=== PATIENT | male | born 1975 | race Caucasian/White ===

== ENCOUNTER 2025-03-06 11:51 | Day surgery (SDC) | payer OTHER, SELFPAY ==
[2025-03-04 14:52] VITALS: BMI 25.7
--- NOTE | 2025-03-06 | PATH_ITS ---
[facility] Accession Number: [id number] No. of containers..02 Tissue . 01 Material submitted: . PART A: colon - SIGMOID POLYP PART B: hemorrhoids - THROMBOSED EXTERNAL HEMORRHOID . 01 Diagnosis: Part A: SIGMOID POLYP: Tubular adenoma. . Part B: THROMBOSED EXTERNAL HEMORRHOID: Congested squamous mucosa consistent with benign hemorrhoid tissue, with focal thrombosis. No dysplasia identified. [facility] 03/16/2025 1245 Local . 01 Electronically signed: . Cipriano Mercer MD, Pathologist NPI- [id number] . 01 Gross description: . . . . Received are two formalin-filled containers both labeled with the patient's name. . A. In a container labeled sigmoid polyp, are two fragments of phillip, soft tissue which range in size from less than 0.1 cm to 0.1 x 0.1 x 0.1 cm. The specimen is entirely submitted in cassette A1. . B. In a container labeled thrombosed external hemorrhoid, is a blue-loya to loya-brown, rough piece of tisue which measures 2.8 x 1.2 x 1.3 cm. The specimen is inked, sectioned, and two auto claim representative sections are submitted in cassette B1. ([id number]) /[facility] 03/16/2025 1245 Local . 01 Pathologist provided ICD-10: D12.5, K64.9 . 01 CPT . 481740, [id number] Specimen Comment: A courtesy copy of this report has been sent to [facility] Performed at: [address] [address], [place], [place] [id number] MD Cipriano Mercer MD Phone: [phone]
--- NOTE | 2025-03-06 07:17 | PM.PREOP ---
Pre-operative Note Interval Note History & Physical reviewed/Exam performed by Physician: Yes Changes to H&P: No ASA Class (for procedural sedation): I
[2025-03-06 12:42] VITALS: BP 127/77; PULSE 69; RESP 16; TEMP 36.2; O2SAT 98
[2025-03-06] MEDS: LACTATED RINGERS 1,000 ML 42 ML IV (13:00)
[2025-03-06] MEDS: ACETAMINOPHEN 325 MG TABLET 975 MG PO (13:00)
--- NOTE | 2025-03-06 14:17 | SUR.OPER ---
Colonoscopy positioning: Lateral left side down on stretcher, head on pillow, both legs bent, upper leg supported with pillows. one bed rail up.
--- NOTE | 2025-03-06 15:21 | SUR.OPER ---
Hemorrhoidectomy positioning: Prone on padded OR bed, head in foam head support, gel chest rolls on left and right side of chest, gel pad under knees, pillow under lower legs, toes free of pressure, arms secured on padded arm boards at <90 degrees abduction. Safety belt at shoulders, tape over blanket over lower legs
[2025-03-06 15:25] VITALS: BP 110/58; PULSE 81; RESP 17; TEMP 36.3; O2SAT 94
[2025-03-06 15:30] VITALS: BP 109/63; PULSE 78; RESP 17; O2SAT 97
[2025-03-06] MEDS: BACITRACIN OINT 0.9 GM PCKT 1 APPLIC TOP (15:32)
[2025-03-06 15:35] VITALS: BP 106/56; PULSE 76; RESP 20; O2SAT 96
[2025-03-06 15:40] VITALS: BP 111/60; PULSE 76; RESP 24; O2SAT 95
--- NOTE | 2025-03-06 15:42 | P.OP_ITS ---
Operative Date/Time/Diagnoses Date of procedure: 03/06/25 Time of procedure: 15:42 Pre-op diagnosis: Rectal bleeding, hemorrhoids Post-op diagnosis: same Procedure & Clinicians Procedure: Colonoscopy with biopsy, hemorrhoidectomy Same procedure(s) as scheduled: Yes Indications: Rectal bleeding, hemorrhoids Surgeon: Fernando Hoff Click Yes if Unassisted: Yes Anesthesia Type: General Operative Notes Findings: Single, sessile, 3mm polyp sigmoid colon, benign appearing, biopsied with cold biopsy forceps, sent to pathology Single hemorrhoid column, thrombosed, 11 o'clock position, anal fissure with sentinel pile Closure Type: primary Specimen(s): other (hemorrhoid, sigmoid polyp) Applied: none Estimated Blood Loss (mL): 10 Blood products transfused: none Procedure in detail: After informed consent and satisfactory general endotracheal anesthesia, surgical time-out was performed with all team members in agreement. The colonoscopy portion was addressed first. Colonoscopy Patient placed in left lateral recumbent position. Time out was performed. GETA per anesthesia. Examination began with a thorough inspection of the perianal area. There was an external thrombosed hemorrhoid at 11 o'clock and a fissure with pile at the 12 o'clock position. The colonoscope was then placed into the rectum and the lumen was insufflated with carbon dioxide. The scope was carefully advanced forward. Ultimately the cecum was intubated and confirmed by identification of the ileocecal valve, the appendiceal orifice and the confluence of the taenia. The scope was then slowly withdrawn examining the colon thoroughly in all directions. In the rectum, retroflexion of the scope was performed for inspection of the distal rectum and anal canal. ?Significant colonoscopy findings: ?1. Quality of the preparation-good, Elton 2-3, improved with irrigation/suction ?2. Single, 3mm, sessile, sigmoid polyp, benign-appearing, cold biopsy for pathology 3. internal column associated with external hemorrhoid 4. Anal fissure at 12 o'clock with sentinel pile 5. Plan next colonoscoy in 10 years unless pathology report changes rec ommendation Our attention was then turned to the hemorrhoidectomy portion of the procedure. Upon exam under anesthesia, an anal fissure at the 12 o'clock position was noted with a sentinel pile. He had a thrombosed hemorrhoid at the 11 o'clock position. There was an internal column associated with the external hemorrhoid. I performed a hemorrhoidectomy of this thrombosed hemorrhoid by making a v- shaped incision with cautery, grasping the hemorrhoid and carrying the mucosal epithelial incision down proximally until it was raised on a pedicle. Care was taken to isolate the hemorrhoid from the sphincter mechanism. Once this was on a pedicle I suture ligated this proximally with a clamp and extending the mucosal epithelial incision proximally. I then suture ligated the stalk with a 3-0 chromic suture and then excised the hemorrhoid and then ran the chromic in a running locking fashion out to the epithelial surface. The anal fissure was incorporated in this closure and may assist with healing. There were no other substantial hemorrhoidal columns internal or external that needed attention. Prior to the procedure I injected 30 cc of 0.5% Marcaine with epinephrine around the sphincter mechanism for postoperative analgesia and relaxation of the sphincter. Hemostasis was excellent. The hemorrhoid was passed off the field for permanent section. The estimated blood loss was minimal. The instrument sponge and needle counts were all correct x2. The patient tolerated both procedures well and was transported to the recovery area in stable condition. Complications: none Post-operative Disposition: PACU Plan for aftercare: PACU then home
[2025-03-06 15:45] VITALS: BP 110/59; PULSE 73; RESP 16; TEMP 36.4; O2SAT 96
== END 2025-03-06 16:00 | disposition home or self-care (01) ==
PROVIDERS: PCP Family Medicine; Referring Provider Surgery; Visit Provider Surgery
PROC: (CPT 46255; principal; 2025-03-06 14:00)
DX: K62.5 Hemorrhage of anus and rectum (principal); K64.5 Perianal venous thrombosis; K60.2 Anal fissure, unspecified; Z87.891 Personal history of nicotine dependence; F19.11 Other psychoactive substance abuse, in remission; D12.5 Benign neoplasm of sigmoid colon
CPT/HCPCS: 46255; 45380; J0330; J1100; J1885; J2250; J2405; J2704; J3010